=== PATIENT | male | born 1990 | race American Indian/Alaskan Native ===

== ENCOUNTER 2019-01-18 23:32 | Emergency (ER) | payer OTHER ==
[2019-01-18 23:45] VITALS: BP 128/92
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
[2019-01-19] MEDS ORDERED: FLEXERIL PO ONE (00:59)
[2019-01-19] MEDS ORDERED: TORADOL IM ONE (00:59)
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
== END 2019-01-19 01:41 | disposition home or self-care (01) ==
LOC: ED 23:32
DX: M79.18 Myalgia, other site (principal); M54.2 Cervicalgia; Z79.899 Other long term (current) drug therapy; V49.59XA Passenger injured in collision with other motor vehicles in traffic accident, initial encounter; Y93.89 Activity, other specified; Y92.89 Other specified places as the place of occurrence of the external cause; Y99.8 Other external cause status
CPT/HCPCS: 72100; 99283; J1885

== ENCOUNTER 2020-09-17 20:42 | Emergency (ER) | payer SELFPAY ==
[2020-09-17 22:05] VITALS: BP 144/105
== END 2020-09-17 23:20 | disposition left against medical advice (07) ==
LOC: ED 20:42
DX: R20.0 Anesthesia of skin (principal); Z53.21 Procedure and treatment not carried out due to patient leaving prior to being seen by health care provider